=== PATIENT | male | born 1970 | race Caucasian/White ===

== ENCOUNTER → 2020-06-12 15:08 | Outpatient (CLI) | payer BC, SELFPAY | PROVIDERS: PCP Family Medicine; Visit Provider Family Medicine | DX: E03.9 Hypothyroidism, unspecified (principal) | CPT/HCPCS: 36415 ==

== ENCOUNTER → 2022-04-14 | Outpatient (CLI) | payer BC, SELFPAY | END | disposition home or self-care (01) | LOC: BFHLAB 16:23 | PROVIDERS: PCP Family Medicine; Visit Provider Family Medicine | DX: E03.9 Hypothyroidism, unspecified (principal) | CPT/HCPCS: 36415 ==

== ENCOUNTER → 2023-04-17 | Outpatient (CLI) | payer BC, SELFPAY ==
[2023-04-17 18:01] LABS: Absolute Lymphocyte Count 2.51 X10^3/uL (0.83-4.51); Absolute Neutrophil Count 4.1 X10^3/uL (2.0-7.7); Basophil# 0.05 X10^3/uL; Basophil% 0.6 % (0-1); Eosinophil# 0.25 X10^3/uL; Eosinophils% 3.2 % (0-5); Hematocrit 43.6 % (40-54); Hemoglobin 14.3 g/dL (13.0-16.5); Lymphocyte # 2.51 X10^3/ul (0.83-4.51); Lymphocyte % 32.5 % (19-41); Mean Corp Hgb Conc 32.8 g/dL (32-36); Mean Corpuscular Hgb 30.4 pg (27.0-32.0); Mean Corpuscular Volume 92.8 fL (80-94); Mean Platelet Vol. 10.8 fl (6.2-12.0); Monocyte% 10.4 % (0-10); NRBC Flagged by Analyzer 0 % (0-5); Neutrophil % 53.2 % (47-70); Platelet Count 278 K/mm3 (150-450); RBC Distribution Width CV 13.1 % (11.6-14.6); RBC Distribution Width SD 44.8 fl (35.1-43.9); White Blood Count 7.7 K/mm3 (4.4-11.0)
[2023-04-17 18:16] LABS: ALB/GLOB Ratio 0.8 RATIO (0.9-2.4); AST(SGOT) 22 U/L (15-37); Alanine Aminotransfer ALT/SGPT 47 U/L (16-61); Albumin, Serum 3.6 g/dL (3.2-5.0); Alkaline Phosphatase 78 U/L (45-117); Anion Gap 7 (5-15); BUN 14 mg/dL (7-18); BUN/Creat Ratio 16.5 RATIO (10-20); Calcium,Total 8.6 mg/dL (8.5-10.1); Chloride 105 mmol/L (98-107); Creatinine, Serum 0.85 mg/dL (0.70-1.30); EST Glomerular Filtration Rate 101 mL/min (>60); Est Glom Filt Rate - Afr Amer 123 mL/min (>60); Globulin 4.6 g/dL (2.2-4.2); Glucose 90 mg/dL (74-106); Potassium 3.8 mmol/L (3.5-5.1); Protein, Total 8.2 g/dL (6.4-8.2); Sodium Level 136 mmol/L (136-145); T4 Free Direct 1.12 ng/dL (0.76-1.46); Thyroid Stim Hormone (TSH) 1.43 uIU/mL (0.358-3.74)
== END | disposition home or self-care (01) ==
LOC: BFHLAB 15:21
PROVIDERS: PCP Nurse Practitioner Family; Visit Provider Nurse Practitioner Family
DX: Z00.01 Encounter for general adult medical examination with abnormal findings (principal); E03.9 Hypothyroidism, unspecified
CPT/HCPCS: 36415; 80053; 84439; 84443; 85025

== ENCOUNTER → 2024-04-22 | Outpatient (CLI) | payer BC, SELFPAY ==
[2024-04-22 15:19] LABS: Absolute Lymphocyte Count 1.84 X10^3/uL (0.83-4.51); Absolute Neutrophil Count 4.5 X10^3/uL (2.0-7.7); Basophil# 0.04 X10^3/uL; Basophil% 0.6 % (0-1); Eosinophil# 0.14 X10^3/uL; Hematocrit 43.6 % (40-54); Hemoglobin 14.2 g/dL (13.0-16.5); Lymphocyte # 1.84 X10^3/ul (0.83-4.51); Mean Corp Hgb Conc 32.6 g/dL (32-36); Mean Platelet Vol. 11.2 fl (6.2-12.0); Monocyte# 0.58 X10^3/uL; Monocyte% 8.2 % (0-10); NRBC Flagged by Analyzer 0 % (0-5); Neutrophil # 4.47 X10^3/uL (2.7-7.7); Neutrophil % 62.9 % (47-70); Platelet Count 230 K/mm3 (150-450); RBC Distribution Width CV 13.4 % (11.6-14.6); RBC Distribution Width SD 45.8 fl (35.1-43.9); Red Blood Count 4.74 M/mm3 (4.6-6.2); White Blood Count 7.1 K/mm3 (4.4-11.0)
[2024-04-22 15:45] LABS: ALB/GLOB Ratio 0.9 RATIO (0.9-2.4); AST(SGOT) 22 U/L (15-37); Alanine Aminotransfer ALT/SGPT 36 U/L (16-61); Albumin, Serum 3.8 g/dL (3.2-5.0); Alkaline Phosphatase 72 U/L (45-117); Anion Gap 5 (5-15); BUN 17 mg/dL (7-18); BUN/Creat Ratio 17.3 RATIO (10-20); Calcium,Total 9.2 mg/dL (8.5-10.1); Chloride 106 mmol/L (98-107); Cholesterol 230 mg/dL (200); Creatinine, Serum 0.98 mg/dL (0.70-1.30); EST Glomerular Filtration Rate 85 mL/min (>60); Est Glom Filt Rate - Afr Amer 103 mL/min (>60); Globulin 4.3 g/dL (2.2-4.2); Glucose 107 mg/dL (74-106); High Density Lipoprotein 62 mg/dL; PSA,Total - Annual Screen 1.08 ng/mL (0.00-4.00); Potassium 3.7 mmol/L (3.5-5.1); Protein, Total 8.1 g/dL (6.4-8.2); Sodium Level 138 mmol/L (136-145); T4 Free Direct 1.12 ng/dL (0.76-1.46); Triglycerides 154 mg/dL; Very Low Density Lipoprotein 31 mg/dL (5-40)
== END | disposition home or self-care (01) ==
LOC: BFHLAB 13:27
PROVIDERS: PCP Nurse Practitioner Family; Referring Provider Nurse Practitioner Family; Visit Provider Nurse Practitioner Family
DX: Z00.01 Encounter for general adult medical examination with abnormal findings (principal); E03.9 Hypothyroidism, unspecified; Z12.5 Encounter for screening for malignant neoplasm of prostate
CPT/HCPCS: 36415; 80053; 80061; 84153; 84439; 84443; 85025; G0103

== ENCOUNTER → 2024-09-02 | Outpatient (CLI) | payer OTHER, SELFPAY ==
--- NOTE | 2024-09-02 08:01 | MRI_ITS ---
EXAM: MR upper extremity elbow CLINICAL HISTORY: Biceps tendon rupture COMPARISON: None TECHNIQUE: Multi-planar water and fat sensitive sequences of the right elbow obtained without contrast FINDINGS: Osseous Structures: Distal humerus: Normal morphology and signal intensity. No fractures or bone marrow edema. Proximal radius: Normal morphology and signal intensity. No fractures or bone marrow edema. Proximal ulna: Normal morphology and signal intensity. No fractures or bone marrow edema. Joints: Humeroulnar joint: Normal alignment and joint space. No erosions or joint effusion. No plica identified. Humeroradial joint: Normal alignment and joint space. No erosions or joint effusion. Proximal radioulnar joint: Normal alignment and joint space. No erosions or joint effusion. Ligaments: Medial Collateral Ligament (MCL) Complex: Anterior bundle: Intact, normal appearance. No findings of periligamentous, partial-thickness, or full-thickness tears are present. Posterior bundle: Intact, normal appearance. No findings of periligamentous, partial-thickness, or full-thickness tears are present. Transverse ligament: Unremarkable in appearance. Lateral Collateral Ligament (LCL) Complex: Radial collateral ligament (RCL): Intact without partial thickness or complete tear. Lateral ulnar collateral ligament (LUCL): Intact without partial thickness or complete tear. Annular ligament: Unremarkable in appearance. Tendons: Biceps Tendon: Distal biceps tendon rupture present with a proximally 7 cm retraction. Prominent anterior elbow soft tissue swelling. Triceps Tendon: Inserts on the olecranon and is unremarkable, showing continuous low signal intensity without disruption. Brachialis Tendon: Normal signal and intensity at humeral insertion. Common Flexor Tendon: Attaches to the medial epicondyle and demonstrates normal fiber orientation and signal intensity. There is no evidence of tendinopathy or tear or peritendinous edema. Common extensor tendon origin: Increased signal compatible with lateral epicondylitis with 1 cm moderate partial insertional tear involving approximately 50% of the cross-sectional fibers. Muscles: Surrounding musculature (including the brachialis, brachioradialis, and anconeus) exhibits preserved bulk and signal intensity, with no signs of edema, fatty infiltration, or abnormal masses. Soft Tissues: Prominent anterior elbow soft tissue swelling from biceps tendon rupture injury. Neurovascular Structures: Neurovascular bundle: Normal appearance. No evidence of major neurovascular compression or injury. Cubital tunnel: Normal caliber. No evidence of ulnar nerve compression or abnormal soft tissue within the tunnel. MRI/Upper Ext Joint Only(Routine) IMPRESSION: Distal biceps tendon rupture with a proximally 7 cm of retraction and prominent anterior elbow soft tissue swelling. Moderate lateral epicondylitis with 1 cm partial-thickness insertional tear. Reading Location: [facility]
== END | disposition home or self-care (01) ==
LOC: MRI 07:58
PROVIDERS: PCP Nurse Practitioner Family; Referring Provider Orthopaedic Surgery Sports Medicine; Visit Provider Orthopaedic Surgery Sports Medicine
DX: S46.211A Strain of muscle, fascia and tendon of other parts of biceps, right arm, initial encounter (principal)
CPT/HCPCS: 73221

== ENCOUNTER 2024-09-11 07:28 | Day surgery (SDC) | payer OTHER, SELFPAY ==
[2024-09-11] VITALS (8 sets, daily range): BP systolic 131–147; BP diastolic 90–103; PULSE 82–91; RESP 14–18; TEMP 36.3–36.8; O2SAT 92–97; BMI 34.9
--- NOTE | 2024-09-11 08:07 | PCM.PRE.AN2 ---
ASA Classification* ASA Classification ASA Classification: 2 Assessment & Plan Anesthesia* Anesthesia Assessment Anesthesia Assessment: Discussed sedation and/or anesthesia options, risks, benefits, and alternatives with patient/parents/legal guardian/POA. Questions invited. The patient/parents/legal guardian/POA seems to understand and agrees to proceed with anesthesia plan. Reviewed the physical assessment, medical history, allergy history and patient home medications list prior to surgery/procedure/anesthetic and documented any changes. Performed airway and anesthesia risk assessments. Anesthesia Type Anesthesia Type: General and Block Anesthesia Focused Assessment* Airway Assessment Mouth opens: >3 cm Mallampati Score: II Focused Labs Anesthesia Preop lab: CBC WBC 7.1 K/mm3 (4.4-11.0) 04/22/24 13:34 04/22/24 RBC 4.74 M/mm3 (4.6-6.2) 04/22/24 13:34 04/22/24 Hgb 14.2 g/dL (13.0-16.5) 04/22/24 13:34 04/22/24 Hct 43.6 % (40-54) 04/22/24 13:34 04/22/24 Plt Count 230 K/mm3 (150-450) 04/22/24 13:34 04/22/24 CHEMISTRY Potassium 3.7 mmol/L (3.5-5.1) 04/22/24 13:34 04/22/24 Sodium 138 mmol/L (136-145) 04/22/24 13:34 04/22/24 BUN 17 mg/dL (7-18) 04/22/24 13:34 04/22/24 Creatinine 0.98 mg/dL (0.70-1.30) 04/22/24 13:34 04/22/24 Glucose 107 mg/dL (74-106) H 04/22/24 13:34 04/22/24 TSH 1.300 uIU/mL (0.358-3.740) 04/22/24 13:34 04/22/24 COAG Pre-Assessment Diagnosis/Proposed Procedure Planned Operative Procedure(s): REPAIR, BICPES TENDON Anesthesia History Anesthesia History - agricultural scientist: Anesthesia History - agricultural scientist Hx Hospitalization No 09/06/24 15:06 Any Problems With Anesthesia No 09/06/24 15:06 Cholinesterase deficiency No 09/06/24 15:06 You/Your Family Experience No 09/06/24 15:06 fever (hyperthermia) with Relationship Recent Exposure to Contagious Disease Does patient have nerve No 09/06/24 15:06 stimulator Patient instructed to have device shut off --Does patient have Pacemaker or ICD? When Was Last Pacemaker Check QUESTION #4 FULL TEXT: You/Your Family Experience fever (hyperthermia) with Anesthesia Last Oral Intake Last Oral intake: Last Oral Intake NPO since Meds taken in AM with sips of water? Meds patient instructed to take am of surgery PONV PONV - agricultural scientist: PONV - agricultural scientist Female No 09/06/24 15:06 HX of Motion Sickness No 09/06/24 15:06 HX of N/V After Surgery No 09/06/24 15:06 Non-Smoker Yes 09/06/24 15:06 Duration of Surgery greater Yes 09/06/24 15:06 than 60 minutes Number of Risk Factors 2 09/06/24 15:06 PONV Score Moderate Risk 09/06/24 15:06 Height & Weight Height & Weight: Anesthesia: Height & Weight Height 5 ft 7 in 08/29/24 14:50 Respiratory Assessment Respiratory Assessment - agricultural scientist: Respiratory Tract Infection Hx - agricultural scientist Hx Respiratory Tract Infection No 09/06/24 15:06 STOP Sleep Apnea STOP Sleep Apnea - agricultural scientist: STOP Sleep Apnea - agricultural scientist Hx Hypertension No 09/06/24 15:06 Hx Sleep Apnea No 09/06/24 15:06 CPAP BIPAP Do you snore loudly (louder No 09/06/24 15:06 than talking or can be heard Do you often feel tired/ No 09/06/24 15:06 fatigued/ sleepy during daytime? Has anyone observed you stop No 09/06/24 15:06 breathing during sleep? STOP Results Negative 09/06/24 15:06 QUESTION #5 FULL TEXT : Do you snore loudly (louder than talking or can be heard through closed doors)? 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 Specify any problems Hx of Preganancy in last 3 N/A 09/06/24 15:06 Months Nurse Filling Out Transfusion NBUCHER 09/06/24 15:06 & Questions: Date: 09/06/24 09/06/24 15:06 Time: 15:07 09/06/24 15:06 Patient unable to answer at this time (ie. confused, unrespo /Reproduction History /Reproductive History - agricultural scientist: /Reproductive Hx- agricultural scientist Hx Now No 09/06/24 15:06 Gestational Age (in weeks): EDC: Hx Hx Para Hx Section SAB No 09/06/24 15:06 Active Medications Active Medications: Current Medications Generic Name Dose Route Start Last Admin Trade Name Freq PRN Reason Stop Dose Admin Cefazolin Sodium 2 gm/ Sodium 110 mls @ 150 mls/hr 09/11/24 09:05 Chloride IV 09/11/24 09:48 INTRAOP ONE [facility] Medical History Wears glasses Thyroid disease Hypothyroid Non-smoker Rupture of right distal biceps tendon Home Medications ?Medication ?Instructions ?Recorded ?Last Taken ?Type levothyroxine 150 mcg capsule 175 mcg PO QDAY 08/29/24 09/11/24 06:00 History Allergy/AdvReac Type Severity Reaction Status Date / Time No Known Allergies Allergy Verified 09/11/24 07:56 Surgical History History of hand surgery History of carpal tunnel release Social History Smoking Status: Never smoker alcohol intake: current alcohol intake frequency: holidays/special occasions only Review of Systems (Anesthesia) ROS Narrative System reviewed and no additional complaints, except as documented.
[2024-09-11] MEDS: Lactated Ringers 1,000 ML 15 ML IV (08:20)
--- NOTE | 2024-09-11 08:26 | PCM.HP.STD ---
HPI - General HPI Narrative MING SHELDON, is a 54 M who presents for right distal biceps repair. No changes to history and physical exam. Right elbow marked. Risks alternatives benefits as well as postoperative instruction and narcotic counseling given. The patient understands wished to proceed no further questions or concerns. MR#: [id number] Acct: [id number] Name: MING SHELDON Rep #: [id number] : 1970 Provider: Dr. Armen Hansen MD Age/Sex: 54/M [place] [facility] Status: Signed Intake Vital Signs 08/29/2513:50 Height 5 ft 7 in Weight: 223 lb 6 oz BMI 34.9 Intake Visit Reasons: RIGHT ARM Chief Complaint: right elbow pain, doi: 08/26/24 Allergies No Known Allergies Allergy (Unverified 09/05/24 15:14) Medications ?Medication ?Instructions ?Recorded ?Confirmed ?Type levothyroxine 150 mcg capsule 150 mcg PO QDAY 08/29/24 09/05/24 History PFSH Medical History Rupture of right distal biceps tendon Surgical History History of carpal tunnel release Social History Smoking Status: Never smoker alcohol intake: current alcohol intake frequency: holidays/special occasions only HPI RIGHT ARM Details: This documentation accurately reflects the service provided and the decisions made by me, Dr. Armen Hasnen MD 09/05/24 [id number]. Part of today?s visit was documented by [ ], acting as scribe. MING SHELDON is a 54 year old M here today for follow-up right elbow MRI to assess for distal biceps tear. Supplemental Info [facility] Imaging Services [address] [place] [address] Upper Ext Joint Only(Routine) MR#: [id number] Acct: [id number] Name: MING SHELDON Rep #: [id number] : 1970 M 54 From: David Oliveira MD PCP: VAZQUEZ Maurer Status: REG CLI Study: Upper Ext Joint Only(Routine) Date of Exam: 09/02/24 Exam# [id number] Ordering Dr: Armen Hansen MD EXAM: MR upper extremity elbow CLINICAL HISTORY: Biceps tendon rupture COMPARISON: None TECHNIQUE: Multi-planar water and fat sensitive sequences of the right elbow obtained without contrast FINDINGS: Osseous Structures: Distal humerus: Normal morphology and signal intensity. No fractures or bone marrow edema. Proximal radius: Normal morphology and signal intensity. No fractures or bone marrow edema. Proximal ulna: Normal morphology and signal intensity. No fractures or bone marrow edema. Joints: Humeroulnar joint: Normal alignment and joint space. No erosions or joint effusion. No plica identified. Humeroradial joint: Normal alignment and joint space. No erosions or joint effusion. Proximal radioulnar joint: Normal alignment and joint space. No erosions or joint effusion. Ligaments: Medial Collateral Ligament (MCL) Complex: Anterior bundle: Intact, normal appearance. No findings of periligamentous, partial-thickness, or full-thickness tears are present. Posterior bundle: Intact, normal appearance. No findings of periligamentous, partial-thickness, or full-thickness tears are present. Transverse ligament: Unremarkable in appearance. Lateral Collateral Ligament (LCL) Complex: Radial collateral ligament (RCL): Intact without partial thickness or complete tear. Lateral ulnar collateral ligament (LUCL): Intact without partial thickness or complete tear. Annular ligament: Unremarkable in appearance. Tendons: Biceps Tendon: Distal biceps tendon rupture present with a proximally 7 cm retraction. Prominent anterior elbow soft tissue swelling. Triceps Tendon: Inserts on the olecranon and is unremarkable, showing continuous low signal intensity without disruption. Brachialis Tendon: Normal signal and intensity at humeral insertion. Common Flexor Tendon: Attaches to the medial epicondyle and demonstrates normal fiber orientation and signal intensity. There is no evidence of tendinopathy or tear or peritendinous edema. Common extensor tendon origin: Increased signal compatible with lateral epicondylitis with 1 cm moderate partial insertional tear involving approximately 50% of the cross-sectional fibers. Muscles: Surrounding musculature (including the brachialis, brachioradialis, and anconeus) exhibits preserved bulk and signal intensity, with no signs of edema, fatty infiltration, or abnormal masses. Soft Tissues: Prominent anterior elbow soft tissue swelling from biceps tendon rupture injury. Neurovascular Structures: Neurovascular bundle: Normal appearance. No evidence of major neurovascular compression or injury. Cubital tunnel: Normal caliber. No evidence of ulnar nerve compression or abnormal soft tissue within the tunnel. MRI/Upper Ext Joint Only(Routine) IMPRESSION: Distal biceps tendon rupture with a proximally 7 cm of retraction and prominent anterior elbow soft tissue swelling. Moderate lateral epicondylitis with 1 cm partial-thickness insertional tear. Reading Location: [facility] I independently reviewed the imaging. Concur with radiologist report. Coding Level of Care Code Off vis,est,level 4 Diagnoses Rupture of right distal biceps tendon S46.211A Assessment and Plan Assessment and Plan (1) Rupture of right distal biceps tendon: Status: Acute Plan: 54-year-old man with a right distal biceps tear. This is an acute injury. Discussed the pros cons risk benefits of nonoperative management versus surgery. Typically with nonoperative patients will lose 50% of supination strength and 10% of flexion strength as well as the cosmetic deformity. That being said surgery has its own set of risks like infection injury to the posterior interosseous nerve or lateral antebrachial cutaneous nerve. A small percentage of these may not recover resulting in a wrist drop or weakness in terms of finger or wrist extension or other problems associate with the upper extremity. That being said the patient can also have a retear fracture or other problems specifically associated with the surgery like heterotopic ossification when doing 1 incision approach. The patient understands and wishes to go ahead with right distal biceps repair. Will try to get this on early next week. Pros and cons risks and benefits were discussed with the patient including but not limited to infection, pain, stiffness, bleeding, damage to surrounding structures, neurovascular injury, recurrence or retear, failure or wear of hardware or fixation, instability, fracture, deep vein thrombosis and pulmonary embolism, anesthetic risks, , patient dissatisfaction, need for further surgery and other risks. Patient understood and wished to proceed with surgery, and signed the informed consent documentation. Ortho Exam General General: Yes no acute distress Neurologic: Yes alert and Yes oriented x3 Psychologic: Yes reasonable and appropriate [facility] Medical History Wears glasses Thyroid disease Hypothyroid Non-smoker Rupture of right distal biceps tendon Home Medications ?Medication ?Instructions ?Recorded ?Last Taken ?Type levothyroxine 150 mcg capsule 175 mcg PO QDAY 08/29/24 09/11/24 06:00 History Allergy/AdvReac Type Severity Reaction Status Date / Time No Known Allergies Allergy Verified 09/11/24 07:56 Surgical History History of hand surgery History of carpal tunnel release Social History Smoking Status: Never smoker alcohol intake: current alcohol intake frequency: holidays/special occasions only Vital Signs Vital Signs Vital Signs: 09/11/24 08:00 09/11/24 08:00 Temperature 98.2 F Temperature Source Temporal Pulse Rate 82 Respiratory Rate 16 Respiratory Pattern Normal Blood Pressure 144/103 H Blood Pressure Mean 116 Blood Pressure Source Monitor Blood Pressure Position Semi-Fowlers Blood Pressure Location Left Arm Pulse Ox 97 Oxygen Delivery Method Room Air Weight Weight: 223 lb 5.252 oz Body Mass Index (BMI) 34.9
--- NOTE | 2024-09-11 08:48 | RAD_ITS ---
EXAM: Fluoro and surgery CLINICAL HISTORY: C-arm in surgery COMPARISON: None TECHNIQUE: 3 seconds, 0.18 mGy, 1 image FINDINGS: Fluoro was provided. RAD/Elbow 2 Views IMPRESSION: Fluoro was provided. Reading Location: [facility]
[2024-09-11] MEDS: Cefazolin 2 GM in 0.9% Normal Saline (100mL Bag) 100 ML IV (08:55)
--- NOTE | 2024-09-11 09:19 | PCM.POST.ANE ---
Anesthesia: Postop Eval I Current Vital Signs Temperature: 97.8 F Pulse Rate: 88 Blood Pressure: 132/90 Respiratory Rate: 14 Pulse Ox: 92 Assessment Airway patent: Yes Spontaneous unlabored respirations: Yes nausea: Yes Vomiting: No Anesthesia Complication: No Fluid Hydration Crystalloid volume administer (ml): 1,000 Total IV fluid infused: 1,000 Progress Note Anesthesia document: Postop Eval 1 completed: Yes
--- NOTE | 2024-09-11 10:04 | PCM.OPRPT ---
Problems Associated Problem List Diagnoses (1) Rupture of right distal biceps tendon: Procedures Musculoskeletal [id number]: Other Procedure See Report Operative Report (Standard) Operative Information Date of Procedure: 09/11/24 Pre-Operative Diagnosis: Right distal biceps tear Post-Operative Diagnosis: Same Surgery/Procedure Performed: Right distal biceps repair physical medicine specialist: Yes Sanipractic Physician: soniya Tasks completed by assistant winemaker: Retracting Type of Anesthesia: Block,Regional and General RN Documented Start/Stop Times: Operation Date: 09/11/24 09:05 Case Time Into Pre-Op 09/11/24 07:59 Anesthesia Start 09/11/24 08:55 Into Room 09/11/24 08:55 Out of Pre-Op 09/11/24 08:55 Procedure Start 09/11/24 09:14 Procedure End 09/11/24 10:01 Procedure Start Time: 09:14 Procedure Stop Time: 10:01 Select all DRAINS/GRAFTS/IMPLANTS that apply: Implanted device Implanted device details: arthrex distal biceps button and included tenodesis screw Estimated Blood Loss: 25 Specimen collected: No Description of surgery: Patient brought to the operating room theater. Placed supine on the table. Hand table to the patient's right side. General anesthesia induced. 2 g of IV Ancef ministered prior to the start of the procedure. All bony prominences padded. SCDs on the legs. Bed turned 90 degrees. Tourniquet applied to the right upper extremity appropriately padded. Upper extremity prepped and draped in the usual sterile fashion with chlorhexidine-based prep solution allowing over 3 minutes drying time prior to draping. Preoperative timeout performed to confirm the site patient and the surgery. Began by elevating the limb and inflating the tourniquet to 250 mmHg. Made transverse incision at the proximal volar aspect of the forearm over the distal biceps insertion site 2 fingerbreadths below the level of the transverse elbow crease. Carried the dissection down through skin and subcutaneous tissue to achieve meticulous hemostasis. Identified the lateral antebrachial cutaneous nerve protected this retracted it laterally. Dissected proximally identified the distal biceps stump indeed it was quite retracted about 7 cm. I delivered this through the incision grasped onto it using an Allis clamp. I tubularized the distal end of the biceps resected any hypertrophic tissue. Next I used the Arthrex distal biceps button With the included FiberWire suture with a Kristopher needle. I made running locking sutures for 6 throws lock the suture and cut at the mid aspect of the suture. I passed the sutures in opposite direction through the button and set this aside. Turned my attention distally. I dissected down to the level of the radial tuberosity. I protected the circumflex vessels. Cleared away soft tissue from the radial tuberosity attachment. I took intraoperative fluoroscopy after passing the spade tip drill bit bicortically. This was indeed at the radial tuberosity level. I passed the pin in maximum supination. Did put a Hohmann retractor on the medial side but just a [employer] on the lateral side. Ensured not to over retract. I then sized the tendon to an 8 mm and then drilled uni cortically over the pin with a 8 mm drill bit. Irrigated away and suctioned away any bone dust. I then removed the pin and passed the button bicortically flipped the button and then used the tension slide technique to deliver the tendon into the bone tunnel. I had to flex the arm to about 50 degrees to get the tendon fully seated into the tunnel. I then used alternating half hitches to secure the repair followed by the included tenodesis screw fully seated that with good purchase in the bone. Then I passed 1 suture limb back through the tendon and secured this back down for a 3 pronged repair. Tourniquet let down hemostasis achieved wound thoroughly irrigated. Subcutaneous tissue closed with 3-0 Vicryl and 3-0 Monocryl. Skin cleaned with wet and dry dressing elbow kept in flexion while the wound was being closed. Steri-Strips followed by Adaptic 4 x 4 gauze ABD dressing cast padding with a posterior prefabricated fiberglass elbow splint applied with the elbow in 90 degrees of flexion followed by overwrapped with Danny bandage and a sling for the upper extremity. Patient woken up from the general anesthetic transferred off the operating table taken to postanesthetic care unit in stable condition. All sponge needle instrument counts were correct no complications. Plan for the patient discharge home today follow-up in the office in 2 weeks time and standard physical therapy protocol. CPT 04293 Surgical Findings: as above Complications Complications: No Admit VTE Documentation VTE Present on Admission: Yes VTE Mechan Device Prophylaxis: SCD's and None VTE Pharm Prophylaxis ordered?: No Reason prophylaxis not ordered: Treatment Not Indicated
--- NOTE | 2024-09-11 10:13 | DCINST_ITS ---
Discharge Instructions Diet Discharge Diet: No restrictions Activity Ice area for (Minutes): 10 Lifting Restrictions: rest arm desulphurizer operator in splint /sling. Dressing / Incision Call your doctor if your incision/area has: Continuous Slow Oozing, Sudden Increased Bleeding, Increased Pain/ Swelling, Increased Redness, Foul Smelling Discharge and Swelling at the incision site Call your doctor if you observe: Fever of 101 or Higher, Coldness, Increased Pain and Numbness or Tingling Change Dressing in: leave in place till F/U Cleanse incision/area with: Do not get Incision Wet Follow Up Care Please Follow Up With: Armen Hansen MD When: 2 days or within 2 weeks Test Results: Test results from this visit will be discussed in further detail at your follow- up appointment, if applicable. Discharge Plan Admission Attending Provider: Armen Hansen Primary Care Provider: Corinna Hooper Instructions Print Language: Slovenian Discharge Orders/Prescriptions Prescriptions: New oxycodone-acetaminophen [Endocet] 5-325 mg tablet 1 tab PO Q4H MDD 6 PRN (Reason: pain) 4 Days Qty: 20 0RF No Action levothyroxine 150 mcg capsule 175 mcg PO QDAY Referrals / Follow Up: Armen Hansen MD [Med Staff - Active Staff] - Corinna Hooper HARD TILE SETTER-C [Primary Care Provider] - Disposition Disposition (needs filled in before D/C Order can be placed): Home, Self Care
--- NOTE | 2024-09-11 10:38 | POSTOPAN2_ITS ---
Anesthesia Postop Eval I Sum Postop Eval Completion status Anesthesia document: Postop Eval 1 completed: Yes Anesthesia Postop Eval I Summary Anesthesia Postop Eval I Summary: Anesthesia Postop Eval I: Assessment Summary Airway patent Yes 09/11/24 10:16 [email or web address] [email or web address] Spontaneous unlabored Yes 09/11/24 10:16 [email or web address] [email or web address] respirations Mental status nausea Yes 09/11/24 10:16 [email or web address] Vomiting No 09/11/24 10:16 [email or web address] Anesthesia Postop Eval I: Fluid Summary Crystalloid volume administer 1,000 09/11/24 10:16 [email or web address] (ml) Colloids volume administered ( ml) Blood Product volume administered (ml) Total IV fluid infused 1,000 09/11/24 10:16 [email or web address] [email or web address] Anesthesia Postop Eval I: Summary Notes Anesthesia Complication No 09/11/24 10:16 [email or web address] Anesthesia Complication Comment: Post-operative progress note Anesthesia: Postop Eval II Evaluation Mental status: Awake Pain Level: 0 nausea: No Vomiting: No
--- NOTE | 2024-09-11 10:38 | PCM.POSTANE2 ---
Anesthesia Postop Eval I Sum Postop Eval Completion status Anesthesia document: Postop Eval 1 completed: Yes Anesthesia Postop Eval I Summary Anesthesia Postop Eval I Summary: Anesthesia Postop Eval I: Assessment Summary Airway patent Yes 09/11/24 10:16 [email or web address] Spontaneous unlabored Yes 09/11/24 10:16 [email or web address] respirations Mental status nausea Yes 09/11/24 10:16 [email or web address] Vomiting No 09/11/24 10:16 [email or web address] Anesthesia Postop Eval I: Fluid Summary Crystalloid volume administer 1,000 09/11/24 10:16 [email or web address] (ml) Colloids volume administered ( ml) Blood Product volume administered (ml) Total IV fluid infused 1,000 09/11/24 10:16 [email or web address] Anesthesia Postop Eval I: Summary Notes Anesthesia Complication No 09/11/24 10:16 [email or web address] Anesthesia Complication Comment: Post-operative progress note Anesthesia: Postop Eval II Evaluation Mental status: Awake Pain Level: 0 nausea: No Vomiting: No
== END 2024-09-11 11:16 | disposition home or self-care (01) ==
LOC: SDC 07:29 → AC 07:31
PROVIDERS: PCP Nurse Practitioner Family; Referring Provider Orthopaedic Surgery Sports Medicine; Visit Provider Orthopaedic Surgery Sports Medicine
PROC: (CPT 24341; principal; 2024-09-11 08:50)
DX: S46.211A Strain of muscle, fascia and tendon of other parts of biceps, right arm, initial encounter (principal); X58.XXXA Exposure to other specified factors, initial encounter; E03.9 Hypothyroidism, unspecified; Z79.890 Hormone replacement therapy
CPT/HCPCS: 24342; 01710; 64415; 73070; 76000; J2405

== ENCOUNTER 2024-11-07 15:00 | Outpatient (RCR) | payer OTHER, SELFPAY ==
--- NOTE | 2024-09-26 15:43 | HP.PTEVAL ---
Patient's Visit Information Visit Information Visit Information: MING SHELDON is a 54 year old M referred to Physical Therapy by Dr. Armen Hansen MD with a diagnosis of R distal biceps rupture and repair, DOS 09/11/24. Date of Evaluation: 09/26/24 Physical Therapist: Victor Manuel Corea DPT Visit Plan Frequency: 2-3x /Week Duration: 6 Weeks Plan: Work on progressive extension ROM. I added guideline to follow. Manual to R forearm and biceps musculature to reduce muscle spasm. wrist ROM as well. No strengthening currently. Subjective Subjective: Pt. is here today for his initial evaluation with diagnosis of rupture of R distal biceps rupture. DOS: 09/11/24. Pt .arrives with brace on and is doing well. He has the brace locked out at 90deg. of elbow flexion. Pt. reports hurting his elbow at work when he was picking up a nail drag for work. Pt. is now in a brace is tolerating well. No N/T. He has good movements of all his wrist and fingers. 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 Pt. is on a 1 pound lifting restriction. He is sleeping well with brace on. Pt. does take the brace off while sitting at home at times. Pt. is hopeful to get back to all recreational and work activities without limitations. Pain R elbow: Pain Intensity (Out of 10): 0 Pain Intensity Range: 0 and 2 Objective Objective: POSTURE: Pt. has good posture in stance. Has elbow flexed at side. PALPATION: pt. has well healing incision at proximal forearm. No signs of infection. Pt. has tenderness at same area. No bruising noted. NEURO: normal sensation noted. ROM: R elbow: 0-60-full. Mild tightness noted. No pain. Pt. has full R shoulder ROM, did not test extension. Full wrist ROM, slight tightness noted. MMT: did not test this date. Balance/Special Test Scores Quick DASH Score: 52.2725 Goals Goal 1:: LTG: pt. to be I with HEP. Goal Time Frame: 2-4 Weeks Goal 2:: STG: pt. to have increased R elbow extension to lacking 20deg. Goal Time Frame: 2 Weeks Goal 3:: LTG: Pt. to have full R elbow ROM Goal Time Frame: 4-6 Weeks Goal 4:: STG: pt. to sleep throughout the night without increase in symptoms. Rehabilitation Potential Physical Therapy Diagnosis: R distal biceps rupture and repair, DOS 09/11/24. Pt. has subsequent hypomobility, weakness and decreased ability to complete ADLs. Pt. would benefit from PT to initially work on restoring ROM then progressing with strengthening. Rehabilitation Potential: Excellent Anticipated Interventions Patient/Client Instruction: Educate patient on: Condition, Plan of Care, Risk Factors and Benefits of Fitness Program For the Purpose of:: To foster healthy habits, To improve decision making, To facilitate caregiver knowledge, To improve self management, To prevent re-injury and To improve ability to perform tasks related to life management Therapeutic Exercise to Include: Strength training, Power training, Flexibilty training, Passive ROM, Active ROM and Scapular Strength/Stabilization For the Purpose of:: To decrease pain, To decrease swelling/inflammation, To increase ROM, To improve nutrient delivery to tissue, To increase oxygenation perfusion, To improve muscle performance and motor function, To improve ability to perform ADL's, To increase tolerance to activity/condition/position, To decrease soft tissue restriction and To increase flexibility/ROM Manual Therapy Techniques to Include: Passive ROM and Soft tissue mobilization For the Purpose of:: To decrease pain, To decrease swelling/inflammation, To increase ROM, To improve nutrient delivery to tissue and To improve muscle performance and motor function Text: Thank you for the opportunity to evaluate your patient. For Medicare and Medicare HMO plans, please review the plan of care and approve it. It will need to be FAXED BACK to us at [phone] for Medicare purposes. For Medicare only, by signing this I certify the plan of care. Please let me know if there are questions or concerns regarding this plan of care. Physician Signature: Date:
--- NOTE | 2024-10-29 16:22 | HP.PTREVAL ---
Re-Evaluation Intro: Dr. Armen Hansen MD, It has been my pleasure to treat MING SHELDON over the last 10 visits for R distal biceps rupture and repair, DOS 09/11/24. Please see the progress note below for an update on the physical therapy plan of care! Subjective Subjective: Pt. reports overall doing well. No major issues. He saw physician whom was pleased with his progress. Pt. is now able to add 1-2# with lifting per week. No issues after his last PT visit. Objective Objective/Function: Pt. has full ROM of R elbow without pain. No marked tenderness. Incision is doing well. 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 Pt. is sleeping well, no issues with R arm. I did add 1 # with curls today to 6#. He is overall doing great. I would like to continue to see him on a x1 a week basis to progress strengthening as tolerated. He is allowed to increase bicep loading by 1-2# per week per physician Plan Plan Plan: I am asking for an extension of his C9 to allow for him to be seen x1 per week for 6-8 weeks. Progress loading of biceps 1-2# increase per week. Add in RTC and scapular strengthening as tolerated. I want him to continue with strengthening as prescribed, but to not over load. Pt. consents. Balance/Gait/Functional tests Balance/Special Test Scores Quick DASH Score: 52.2725 Goals Goals Goal 1:: LTG: pt. to be I with HEP. Goal Time Frame: 2-4 Weeks Goal 2:: STG: pt. to have increased R elbow extension to lacking 20deg. Goal Time Frame: 2 Weeks Goal Progress: Goal Met Goal 3:: LTG: Pt. to have full R elbow ROM Goal Time Frame: 4-6 Weeks Goal Progress: Goal Met Goal 4:: STG: pt. to sleep throughout the night without increase in symptoms. Goal Progress: Goal Met Goal 5:: LTG: pt. to have full symmetrical strength between BUEs allowing for him to complete all work activities. Goal Time Frame: 4-6 Weeks Goal Progress: Progressing Anticipated Interventions Anticipated Interventions Patient/Client Instruction: Educate patient on: Condition, Plan of Care, Risk Factors and Benefits of Fitness Program For the Purpose of:: To foster healthy habits, To improve decision making, To facilitate caregiver knowledge, To improve self management, To prevent re-injury and To improve ability to perform tasks related to life management Therapeutic Exercise to Include: Strength training, Power training, Flexibilty training, Passive ROM, Active ROM and Scapular Strength/Stabilization For the Purpose of:: To decrease pain, To decrease swelling/inflammation, To increase ROM, To improve nutrient delivery to tissue, To increase oxygenation perfusion, To improve muscle performance and motor function, To improve ability to perform ADL's, To increase tolerance to activity/condition/position, To decrease soft tissue restriction and To increase flexibility/ROM Manual Therapy Techniques to Include: Passive ROM and Soft tissue mobilization For the Purpose of:: To decrease pain, To decrease swelling/inflammation, To increase ROM, To improve nutrient delivery to tissue and To improve muscle performance and motor function Re-Evaluation Ending Re-evaluation ending: Please do not hesitate to contact me at [phone] by phone or if you have questions or concerns regarding this new plan of care! Sincerely, Victor Manuel Croea DPT
== END 2024-11-07 19:00 | disposition home or self-care (01) ==
LOC: PT 15:00
PROVIDERS: PCP Nurse Practitioner Family; Referring Provider Orthopaedic Surgery Sports Medicine; Visit Provider Orthopaedic Surgery Sports Medicine
DX: S46.211D Strain of muscle, fascia and tendon of other parts of biceps, right arm, subsequent encounter (principal)
CPT/HCPCS: 97110; 97140; 97161